=== PATIENT | female | born 1950 | race Caucasian/White ===

== ENCOUNTER 2017-01-28 10:22 | Inpatient (IN) | payer MEDICARE ==
[2017-01-28] MEDS ORDERED: Sodium Chloride 0.9% 1,000 ML IV STA (10:57)
--- NOTE | 2017-01-28 11:20 | ED PDOC ---
Arrival/HPI - General Chief Complaint: Abdominal Pain Time Seen by Provider: 01/28/17 10:49 Historian: Patient - History of Present Illness Narrative History of Present Illness (Text): 01/28/17 11:12 67yo female with PMhx of hypertension, DM, present with complaint of mild abdominal pain associated with multiple episodes of nonbillious/bloody vomiting and diarrhea since 0400am this morning. States she ate in a restaurant last night. She reports that pain radiates to her chest. Denies fever, chills, SOB, diaphoresis, dizziness, sick contact, melena, hematemesis. Past Medical History - Provider Review Nursing Documentation Reviewed: Yes - Infectious Disease Hx of Infectious Diseases: None - Reproductive Menopause: Yes - Cardiac Hx Hypertension: Yes - Endocrine/Metabolic Hx Diabetes Mellitus Type 2: Yes - Genitourinary/Gynecological Other/Comment: left breast CA 1995, had radiation - Psychiatric Hx Substance Use: No - Surgical History Other/Comment: tumor removed from the left breast - Anesthesia Hx Anesthesia: Yes Hx Anesthesia Reactions: No Hx Malignant Hyperthermia: No Family/Social History - Physician Review Nursing Documentation Reviewed: Yes Family/Social History: Unknown Family HX Smoking Status: Never Smoked Hx Alcohol Use: No Hx Substance Use: No Allergies/Home Meds Allergies/Adverse Reactions: Allergies No Known Allergies Allergy (Verified 01/28/17 16:53) Home Medications: Home Meds Medication Instructions Recorded Confirmed Aspirin [Adult Low Dose Aspirin EC] 1 tab PO DAILY 01/28/17 01/28/17 Azilsartan Medoxomil [Edarbi] 40 mg PO QOTHERDAY 01/28/17 01/28/17 Metoprolol Succinate [Metoprolol 1 tab PO DAILY 01/28/17 01/28/17 Succinate] Pioglitazone [Actos] 15 mg PO DAILY 01/28/17 01/28/17 Potassium Chloride [K-Dur 20] 20 meq PO BID 01/28/17 01/28/17 Rosuvastatin Calcium [Crestor] 20 mg PO DAILY 01/28/17 01/28/17 cloNIDine [clonidine HCl] 0.2 mg PO TID 01/28/17 01/28/17 Review of Systems - Physician Review All systems were reviewed & negative as marked: Yes - Review of Systems Constitutional: Normal Eyes: Normal ENT: Normal Respiratory: Normal Cardiovascular: Normal Gastrointestinal: Abdominal Pain, Diarrhea, Nausea, Vomiting. absent: Hematochezia, Hematemesis Genitourinary Female: Normal Musculoskeletal: Normal Skin: Normal Neurological: Normal Endocrine: Normal Hemo/Lymphatic: Normal Psychiatric: Normal Physical Exam Vital Signs Reviewed: Yes Vital Signs Temp Pulse Resp BP Pulse Ox 01/28/17 15:00 98.3 F 78 18 160/88 H 98 01/28/17 13:00 78 18 169/86 H 98 01/28/17 10:35 98 F 68 19 190/100 H 98 Temperature: Afebrile Blood Pressure: Normal Pulse: Regular Respiratory Rate: Normal Appearance: Positive for: Well-Appearing, Non-Toxic, Comfortable Pain Distress: None Mental Status: Positive for: Alert and Oriented X 3 - Systems Exam Head: Present: Atraumatic, Normocephalic Pupils: Present: PERRL Extroacular Muscles: Present: EOMI Conjunctiva: Present: Normal Mouth: Present: Moist Mucous Membranes Neck: Present: Normal Range of Motion Respiratory/Chest: Present: Clear to Auscultation, Good Air Exchange. No: Respiratory Distress, Accessory Muscle Use Cardiovascular: Present: Regular Rate and Rhythm, Normal S1, S2. No: Murmurs Abdomen: Present: Normal Bowel Sounds, Other (Soft). No: Tenderness, Distention , Peritoneal Signs, Rebound, Guarding, McBurney's Point Tender, Rovsing's Sign Present Back: Present: Normal Inspection Upper Extremity: Present: Normal Inspection. No: Cyanosis, Edema Lower Extremity: Present: Normal Inspection. No: Edema Neurological: Present: GCS=15, CN II-XII Intact, Speech Normal Skin: Present: Warm, Dry, Normal Color. No: Rashes Psychiatric: Present: Alert, Oriented x 3, Normal Insight, Normal Concentration Medical Decision Making ED Course and Treatment: 01/28/17 12:49 PT with multiple co morbidities who present with abdominal pain, V/D. Her pain improved in ED. She had pancreatitis on the lab. First CE was negative. Pt was hydrated in ED. She will be admitted for Pancreatitis and chest pain. Case was DW Dr. Rinaldi. She aceepted pt to her seriveice. requested Abdominal CT and Dr. Seaman consult. - Lab Interpretations Lab Results: 01/28/17 11:15 01/28/17 11:15 Lab Results 01/28/17 12:20: Urine Color Straw, Urine Appearance Slight-cloudy, Urine pH 6.5 , Ur Specific Wesley 1.020, Urine Protein Trace H, Urine Glucose (UA) Negative , Urine Ketones Negative, Urine Blood Trace-lysed H, Urine Nitrate Negative, Urine Bilirubin Negative, Urine Urobilinogen 0.2, Ur Leukocyte Esterase Small H , Urine RBC 0 - 2, Urine WBC 5 - 10, Ur Epithelial Cells 0 - 2, Urine Bacteria Small 01/28/17 11:15: WBC 7.4, RBC 4.46, Hgb 12.8, Hct 38.0, MCV 85.2, MCH 28.7, MCHC 33.7, RDW 13.3, Plt Count 223, MPV 10.2, Gran % 85.9 H, Lymph % (Auto) 9.9 L, Burnet % (Auto) 3.8, Eos % (Auto) 0.3 L, Baso % (Auto) 0.1, Gran # 6.35, Lymph # 0.7 L, Burnet # 0.3, Eos # 0.0, Baso # 0.01, PT 10.5, INR 0.97, APTT 27.4, Sodium 142, Potassium 3.6, Chloride 102, Carbon Dioxide 26, Anion Gap 18, BUN 13, Creatinine 0.8, Est GFR ( Amer) > 60, Est GFR (Non-Af Amer) > 60, Random Glucose 128 H, Calcium 9.8, Total Bilirubin 1.2, AST 37, ALT 27, Alkaline Phosphatase 60, Lactate Dehydrogenase 804 H, Total Creatine Kinase 143, Troponin I < 0.01, Total Protein 9.0 H, Albumin 4.8, Globulin 4.2, Albumin/ Globulin Ratio 1.1, Amylase 250 H, Lipase 529 H 01/28/17 11:14: POC Glucose (mg/dL) 130 H - RAD Interpretation Radiology Orders: 01/28/17 12:41 ABD & PELVIS PO CONTRAST ONLY [CT] Stat - EKG Interpretation Interpreted by ED Physician: Yes (NSR @60bpm No ST changes) - Medication Orders Current Medication Orders: Acetaminophen (Tylenol 325mg Tab) 650 mg PO Q6H PRN PRN Reason: Temperature Aspirin (Aspirin Chewable) 81 mg PO DAILY [facility] Atorvastatin Calcium (Lipitor) 20 mg PO DIN [facility] Clonidine HCl (Catapres) 0.2 mg PO TID [facility] Home Med (Home Med) 1 unit PO QOTHERDAY [facility] Ceftriaxone Sodium (Rocephin 1 Gram Ivpb) 100 mls @ 100 mls/hr IVPB DAILY [facility] PRN Reason: Protocol Metronidazole (Flagyl) 100 mls @ 100 mls/hr IVPB Q8 [facility] PRN Reason: Protocol Dextrose/Sodium Chloride (Dextrose 5%/0.45% Ns 1000 Ml) 1,000 mls @ 100 mls/hr IV .Q10H [facility] Insulin Human Regular (Humulin R Low) 0 units SC ACHS [facility] PRN Reason: Protocol Latanoprost (Xalatan Opht) 0 ml OU HS [facility] Metoprolol Tartrate (Lopressor) 50 mg PO BRKDIN [facility] Ondansetron HCl (Zofran Inj) 4 mg IVP Q8H PRN PRN Reason: Nausea/Vomiting Pantoprazole Sodium (Protonix Inj) 40 mg IVP DAILY [facility] Discontinued Medications Famotidine (Pepcid) 20 mg IVP STAT STA Stop: 01/28/17 10:58 Last Admin: 01/28/17 11:26 Dose: 20 MG IVP Administration Document 01/28/17 11:26 [facility] (Rec: 01/28/17 11:[id number]) Charges for Administration # of IVP Administrations 1 Furosemide (Lasix) 20 mg IVP STAT STA Stop: 01/28/17 16:59 Sodium Chloride (Sodium Chloride 0.9%) 1,000 mls @ 100 mls/hr IV .Q10H STA Stop: 01/28/17 20:56 Last Admin: 01/28/17 11:27 Dose: 100 MLS/HR eMAR Start Stop Document 01/28/17 11:27 [facility] (Rec: 01/28/17 11:29 [place] [id number]) Intravenous Solution Start Date 01/28/17 Start Time 11:15 Iohexol (Omnipaque 240 (50 Ml)) Confirm Administered Dose 50 ml .ROUTE .STK-MED ONE Stop: 01/28/17 12:48 Last Admin: 01/28/17 15:55 Dose: 50 ML Ondansetron HCl (Zofran Inj) 4 mg IVP STAT STA Stop: 01/28/17 10:58 Last Admin: 01/28/17 11:26 Dose: 4 MG IVP Administration Document 01/28/17 11:26 [facility] (Rec: 01/28/17 11:26 EWO [id number]) Charges for Administration # of IVP Administrations 1 Ondansetron HCl (Zofran Inj) 4 mg IVP STAT STA Stop: 01/28/17 15:30 Last Admin: 01/28/17 15:55 Dose: 4 MG IVP Administration Document 01/28/17 15:55 [facility] (Rec: 01/28/17 15:55 EWO [id number]) Charges for Administration # of IVP Administrations 2 Ondansetron HCl (Zofran Inj) Confirm Administered Dose 4 mg .ROUTE .STK-MED ONE Stop: 01/28/17 15:48 Last Admin: 01/28/17 15:55 Dose: Potassium Chloride (K-Dur 20 Meq Er Tab) 20 meq PO ONCE ONE Stop: 01/28/17 16:59 Disposition/Present on Arrival - Present on Arrival Any Indicators Present on Arrival: No History of DVT/PE: No History of Uncontrolled Diabetes: No Urinary Catheter: No History of Decub. Ulcer: No History Surgical Site Infection Following: None - Disposition Have Diagnosis and Disposition been Completed?: Yes Diagnosis: Pancreatitis, Chest pain Disposition: HOSPITALIZED Disposition Time: 12:40 Patient Problems: Current Active Problems Problem Status Diagnosed Chest pain Acute Pancreatitis Acute Condition: FAIR
[2017-01-28 11:22] LABS: ADD MANUAL DIFF? NO
[2017-01-28 11:30] LABS: BASO # 0.01 K/mm3 (0.0-2.0); BASO % 0.1 % (0.0-3.0); EOS % 0.3 % (1.5-5.0); GRAN # 6.35 (1.4-6.5); GRAN % 85.9 % (50.0-68.0); LYMPH # 0.7 (1.2-3.4); LYMPH % 9.9 % (22.0-35.0); MEAN CELL VOLUME 85.2 fL (80.0-105.0); MEAN CORPUSCULAR HEMOGLOBIN 28.7 pg (25.0-35.0); MEAN CORPUSCULAR HGB CONC 33.7 g/dl (31.0-37.0); MEAN PLATELET VOLUME 10.2 fl (7.0-11.0); MONO # 0.3 (0.1-0.6); MONO % 3.8 % (1.0-6.0); PLATELET COUNT 223 10^3/uL (120.0-450.0); RED CELL DISTRIBUTION WIDTH 13.3 % (11.5-14.5); WHITE BLOOD COUNT 7.4 10^3/ul (4.5-11.0)
[2017-01-28 11:41] LABS: INR 0.97 (0.93-1.08); PARTIAL THROMBOPLASTIN TIME 27.4 Seconds (23.7-30.8)
[2017-01-28 11:44] LABS: ALB/GLOB RATIO 1.1 (1.1-1.8); ALKALINE PHOSPHATASE 60 U/L (38-133); ALT/SGPT 27 U/L (7-56); AMYLASE 250 U/L (35-125); AST/SGOT 37 U/L (15-39); BILIRUBIN,TOTAL 1.2 mg/dL (0.2-1.3); BLOOD UREA NITROGEN 13 mg/dL (7-21); CALCIUM 9.8 mg/dL (8.4-10.5); CARBON DIOXIDE 26 mmol/L (21-33); CHLORIDE 102 mmol/L (98-107); GFR AFRICAN-AMERICAN > 60; GLUCOSE,RANDOM 128 mg/dL (70-110); LIPASE 529 U/L (23-300); POTASSIUM 3.6 mmol/L (3.6-5.0); SODIUM 142 mmol/L (132-148)
[2017-01-28 11:59] LABS: TROPONIN I < 0.01 ng/mL
[2017-01-28 12:33] LABS: PH,URINE 6.5 (4.7-8.0); URINE BILIRUBIN NEGATIVE (NEGATIVE); URINE BLOOD TRACE-LYSED (NEGATIVE); URINE GLUCOSE (UA) NEGATIVE (NEGATIVE); URINE KETONE NEGATIVE (NEGATIVE); URINE LEUKOCYTE ESTERASE SMALL Leu/uL (NEGATIVE); URINE PROTEIN TRACE mg/dL (<30 mg/dL); URINE UROBILINOGEN 0.2 E.U./dL (<1 E.U./dL)
[2017-01-28 12:35] LABS: URINE APPEARANCE SLIGHT-CLOUDY (CLEAR); URINE COLOR STRAW (YELLOW)
[2017-01-28 12:43] LABS: URINE RBC 0 - 2 /hpf (0-2)
[2017-01-28 12:44] LABS: URINE BACTERIA SMALL (NEG); URINE EPITHELIAL CELLS 0 - 2 /hpf (0-5)
[2017-01-28] MEDS ORDERED: Iohexol 240 (50 ml) ONE (12:47)
--- NOTE | 2017-01-28 14:13 | RAD ---
HISTORY: admission/CP COMPARISON: No prior. FINDINGS: LUNGS: There is mild pulmonary venous congestion. There is no focal consolidation. PLEURA: No significant pleural effusion identified, no pneumothorax apparent. CARDIOVASCULAR: The heart is enlarged. OSSEOUS STRUCTURES: No significant abnormalities. VISUALIZED UPPER ABDOMEN: Normal. OTHER FINDINGS: None. IMPRESSION: Cardiomegaly and mild pulmonary venous congestion.
--- NOTE | 2017-01-28 14:29 | CARD ---
APPROVED REPORT EKG Measurement Heart [id number] <Conclusion> Normal sinus rhythm Anterior infarct, age undetermined Abnormal ECG
--- NOTE | 2017-01-28 15:07 | CT ---
PROCEDURE: CT Abdomen and Pelvis with contrast HISTORY: Abdominal pain COMPARISON: None. TECHNIQUE: CT scan of abdomen and pelvis was performed without administration of intravenous contrast. Oral contrast was administered. Coronal and sagittal reformatted images were obtained. Radiation dose: Total exam DLP = 795.65 MGy-cm. FINDINGS: LOWER THORAX: The lung bases are clear. LIVER: The liver is normal in size. There is a 5 mm low-attenuation lesion in the left hepatic lobe too small to characterize by CT criteria but statistically most compatible with a simple cyst. GALLBLADDER AND BILE DUCTS: There are no calcified gallstones. There is no evidence of intra or extrahepatic biliary ductal dilatation. PANCREAS: The pancreas is normal in size without calcifications or ductal dilatation. SPLEEN: The spleen is normal in size. ADRENALS: Both adrenal glands are normal in size without discrete nodule. KIDNEYS AND URETERS: Both kidneys are normal in size without hydronephrosis or nephrolithiasis. VASCULATURE: No evidence of aortic aneurysm. Atherosclerotic aortoiliac calcifications are present. BOWEL: The stomach is markedly distended and filled with oral contrast. There is apparent mild mural thickening in the duodenal cap. The small bowel loops are normal in caliber. The colon is essentially decompressed. APPENDIX: Normal appendix. PERITONEUM: No free fluid. No free air. LYMPH NODES: No enlarged lymph nodes. BLADDER: Unremarkable. REPRODUCTIVE: The uterus is normal in size. There are no adnexal masses. BONES: No acute fracture. Mild multilevel degenerative disc disease. OTHER FINDINGS: None. IMPRESSION: 1. The stomach is distended and there is apparent mild mural thickening in the duodenal cap which is nonspecific and could be related to underdistention, peristalsis or nonspecific duodenitis. 2. No acute abdominal or pelvic abnormality.
[2017-01-28] MEDS ORDERED: Metoprolol Succinate 100 mg XL Tab PO SCH (16:45)
[2017-01-28] MEDS ORDERED: Potassium Chloride 20 mEq ER Tab PO ONE (16:58)
[2017-01-28] MEDS: Insulin Reg-LOW-Coverage SC SCH ×2 (17:48→22:46)
[2017-01-28] MEDS: Dextrose 5%/0.45% NS 1,000 ML IV SCH (17:57)
[2017-01-28] MEDS: cefTRIAXone 1 gm 100 ML IVPB SCH (17:58)
[2017-01-28 18:33] LABS: TROPONIN I < 0.01 ng/mL
--- NOTE | 2017-01-28 18:39 | HP ---
HISTORY OF PRESENT ILLNESS: This 67-year-old female is admitted to [facility] with pancreatitis, vomiting and multiple comorbidities including chronic hypertension, type 2 diabetes mellitus, obesity, hyperlipidemia and peptic ulcer disease with probable gastroparesis. The patient came to the [facility] ER earlier today complaining of multiple episodes of vomiting and diarrhea, which started at approximately 4 a.m. this morning, she denied any obvious bile or blood in the vomitus or diarrhea and states that the discomfort went from her abdomen to her stomach region and that she has a history of gastritis, GERD, and what sounds like gastroparesis in her past. The patient also, on review of her medical history, has hypertension, hyperlipidemia, obesity and type 2 diabetes mellitus. In the Emergency Room, she was noted to be mildly dehydrated, was given IV fluids and was noted to have an elevated amylase and lipase, raising suspicion for pancreatitis. On further questioning the patient, she denies any alcohol misuse or abuse and states she has no knowledge of gallstones or cholecystitis in her past. REVIEW OF SYSTEMS: CONSTITUTIONAL: She denied fever, chills. HEAD: Denied any head trauma and states she had a mini stroke in the distant past. EYES: She states she has glaucoma and will be taking her eyedrops from home as labeled. EARS: Denied hearing loss. THROAT: Denied swallowing difficulty. NECK: Denied stiffness. CARDIAC: Denied any anginal chest pain. PULMONARY: Denied cough or hemoptysis. GASTROINTESTINAL: Has chronic peptic ulcer disease and history of GERD. She denied hematemesis or melena. GENITOURINARY: Denied dysuria. SKIN: Denied rash. VASCULAR: Denied claudication. PSYCHOLOGICAL: Denied depression. ENDOCRINE: Has hyperlipidemia and diabetes mellitus. PSYCHIATRIC: Denied depression. FAMILY HISTORY: Positive for stroke and pancreatic cancer. SOCIAL HISTORY: She is a retired healthcare switchboard operator assistant. She is a nondrinker, former smoker, non IV drug misuser. ALLERGIES: Denies any allergies to medication. PAST SURGICAL HISTORY: Significant for bunion removal, breast cancer surgery and no major abdominal surgeries in her past. PHYSICAL EXAMINATION: VITAL SIGNS: Temperature 98, respirations 19, pulse 78, blood pressure 169/86 with a pulse ox of 98% on room air. HEENT: Normocephalic, atraumatic. Eyes show no icterus. Ears clear. Throat not injected. NECK: Supple. HEART: Regular S1, S2. No pathological rubs, murmurs, or gallops. LUNGS: Clear. ABDOMEN: Obese, nontender, without palpable organomegaly, without rebound, without guarding. SKIN: Without rash. VASCULAR: Legs warm to touch. EXTREMITIES: No clubbing, no cyanosis, no edema. PSYCHOLOGICAL: Alert and oriented. NEUROLOGICAL: Grossly intact. LABORATORY DATA: White count 7400, hemoglobin 12.8, hematocrit 38.0, platelets 223,000. PT/INR 0.97, PTT 27.4. Sodium 142, K 3.6, chloride 102, bicarbonate 26, BUN 13, creatinine 0.8, random blood sugar 130. Calcium is normal at 9.8, bilirubin 1.2, normal AST 37, ALT 27, alkaline phosphatase 60 all normal. Troponin was less than 0.01. CPK was normal at 143, amylase elevated at 250, lipase was elevated at 529. EKG showed normal sinus rhythm with nonspecific ST- T wave changes. Chest x-ray showed mild pulmonary venous vascular congestion, no focal consolidation, no pneumothorax. Abdominal pelvic CT showed stomach distended with thickening of her duodenal cap which is nonspecific and could be related to under distention, peristalsis, or duodenitis. No acute abdominal or pelvic abnormalities were noted. There were no gallstones, no intra or extrahepatic biliary duct dilatation and pancreas was normal in size with no calcifications or ductal dilatation. IMPRESSION: A 65-year-old obese female with pancreatitis and comorbidities of chronic hypertension, type 2 diabetes mellitus, obesity, hyperlipidemia, degenerative arthritis, peptic ulcer disease with gastroesophageal reflux disease, glaucoma. PLAN: To obtain a repeat comprehensive metabolic panel in the a.m. Amylase and lipase in the a.m., cardiac isoenzymes q. 8 x 2. Blood and urine cultures have been sent. She will be started empirically on Rocephin 1 gram IV q. 24, Flagyl 500 mg IV q. 8, Ecotrin 81 mg p.o. daily, clonidine 0.2 mg p.o. t.i.d., D5 0.45 saline at 100 mL per hour and she remains n.p.o. until cleared by gastroenterology for clear liquid diet. She will continue on regular low dose insulin coverage a.c. meals and at bedtime. She will be given Lasix 20 mg IV 1 dose with 20 mEq potassium chloride x 1 dose for her chest x-ray findings. She will be given Lipitor 20 mg p.o. at dinner, metoprolol tartrate 50 mg p.o. b.i.d., Protonix 40 mg IV daily, eyedrops from home as labeled. She remains n.p.o. Consultation with Dr. Seaamn from has been ordered. Based on the above results in her clinical course on the cardiac unit additional testings and interventions will be entertained. All of this was explained in detail to the patient and her nurse, Debo Sarkar, Meaghan Rinaldi MD cc: [id number] TT: 01/28/2017 18:38:34 jn MTDD
[2017-01-28 20:14] VITALS: BMI 30.5
[2017-01-28] MEDS ORDERED: Pneumococcal 23-Valent Vaccine IM ONE (20:14)
[2017-01-28] MEDS ORDERED: Influenza Vaccine 45 MCG/0.5 ml IM ONE (20:14)
[2017-01-28] MEDS: metroNIDAZOLE IV 500 mg/100 ml 100 ML IVPB SCH (21:32)
[2017-01-28] MEDS: Latanoprost 2.5 ml Opht Soln OU SCH (21:33)
[2017-01-29 01:34] LABS: TROPONIN I < 0.01 ng/mL
--- NOTE | 2017-01-29 06:03 | PN ---
DATE: 01/28/2017 SUBJECTIVE: The patient was seen and evaluated earlier, discussed with Dr. Rinaldi. This 67-year-old patient has a past medical history of hypertension, diabetes mellitus, was admitted for the complaint s of abdominal pain, nausea, and vomiting. HISTORY OF PRESENT ILLNESS: The patient was doing well, went to [facility] ____ . No similar episod es in the past. The patient is being followed by Dr. Rodriguez, divinity professor. The patient had an endoscopy done 2 years ago and she had a colonoscopy done recently for history of polyps. No fever. PAST MEDICAL HISTORY: As above, significant also for left breast CA in 1995 status post radiation. SOCIAL HISTORY: Denies smoking or alcohol. REVIEW OF SYSTEMS: Positive as above. ALLERGIES: No known drug allergy. FAMILY HISTORY: Otherwise noncontributory. PHYSICAL EXAMINATION: GENERAL: The patient is lying on the bed, not in acute distress. VITAL SIGNS: Temperature is 98.3, blood pressure is 108/93. HEENT: Atraumatic, anicteric. NECK: Supple. HEART: S1, S2 heard. LUNGS: Bilateral air entry present. ABDOMEN: Soft. There is no tenderness. EXTREMITIES: No edema, no cyanosis. LABORATORY DATA: Hemoglobin is 12.8, hematocrit 38, platelets 223, WBC is 7.4. BUN 13, creatinine 0 .8. Transaminase is normal. LDH is mildly elevated. The concern is the elevated amylase and lipase values, amylase is 250 and lipase is 529. The CT of the abdomen and pelvis was reviewed. The patient has a history of ulcer disease. IMPRESSION: This is a 67-year-old patient with a history of diabetes mellitus admitted with abdomina l pain, vomiting. The differential diagnoses should include gastroparesis, peptic ulcer disease, ero sive esophagus, and also neoplasia to be considered. The patient has been n.p.o. vomiting. PLAN: Would recommend continue the PPI, IV fluids, initiate ____ measures. 1. Continue the PPI. 2. IV fluids and follow up electrolytes. 3. The patient would benefit from the elective endoscopic examination and would defer until she is m ore optimized. Will slowly advance the diet when the symptoms have improved. The patient is still t hrowing up. If the patient remains symptomatic, we will consider repeat EGD this admission. Eulogio Seaman MD cc: [id number] TT: 01/29/2017 06:03:15 Confirmation # [id number] Dictation # [id number] jn
[2017-01-29] MEDS: metroNIDAZOLE IV 500 mg/100 ml 100 ML IVPB SCH ×3 (06:42→21:31)
[2017-01-29] MEDS: Dextrose 5%/0.45% NS 1,000 ML IV SCH ×2 (06:42→12:56)
[2017-01-29 07:25] LABS: ALB/GLOB RATIO 1.1 (1.1-1.8); ALKALINE PHOSPHATASE 54 U/L (38-133); ALT/SGPT 18 U/L (7-56); AMYLASE 123 U/L (35-125); AST/SGOT 32 U/L (15-39); BILIRUBIN,TOTAL 1.3 mg/dL (0.2-1.3); BLOOD UREA NITROGEN 11 mg/dL (7-21); CALCIUM 9.2 mg/dL (8.4-10.5); CARBON DIOXIDE 28 mmol/L (21-33); CHLORIDE 96 mmol/L (98-107); GFR AFRICAN-AMERICAN > 60; GLUCOSE,RANDOM 137 mg/dL (70-110); LIPASE 91 U/L (23-300); SODIUM 137 mmol/L (132-148); TOTAL PROTEIN 8.6 g/dL (5.8-8.3)
[2017-01-29] MEDS: Insulin Reg-LOW-Coverage SC SCH ×4 (08:23→21:39)
[2017-01-29 09:10] LABS: POTASSIUM 2.8 mmol/L (3.6-5.0)
[2017-01-29] MEDS: Potassium Chloride 10 mEq 100 ML IVPB SCH ×3 (10:26→14:30)
[2017-01-29] MEDS: cefTRIAXone 1 gm 100 ML IVPB SCH (10:27)
[2017-01-29] MEDS: Potassium Chloride 20 mEq ER Tab PO SCH (10:54)
[2017-01-29] MEDS ORDERED: Nitroglycerin 2% Ointment Foilpak UD TOP SCH (11:45)
--- NOTE | 2017-01-29 11:51 | US ---
HISTORY: nausea/vomiting COMPARISON: None. TECHNIQUE: Grayscale imaging was performed. FINDINGS: LIVER: Measures 14.0 cm. Normal echogenicity of the liver parenchyma. No mass. No intrahepatic bile duct dilatation. GALLBLADDER: Unremarkable. No gallstones. COMMON BILE DUCT: Measures 6.0 mm. No stones. No dilatation. PANCREAS: Unremarkable as visualized. No mass. No ductal dilatation. RIGHT KIDNEY: Measures 10.6cm. Normal echogenicity. No calculus, mass, or hydronephrosis. LEFT KIDNEY: Measures 9.6cm. Normal echogenicity. No calculus, mass, or hydronephrosis. SPLEEN: Normal in size and contour. No mass. AORTA: Not visualized due to bowel gas. IVC: Not visualized due to bowel gas. OTHER FINDINGS: None. IMPRESSION: IVC and aorta are obscured by bowel gas. No sonographic abnormality.
--- NOTE | 2017-01-29 11:59 | PN ---
DATE: 01/29/2017 This 67-year-old female was examined at her bedside. Her case was reviewed with her nurse, Debo Sarkar. The patient, since admission, had an episode of further vomiting, has been seen by Dr. Seaman from GI and remains n.p.o. on IV fluids and IV antibiotics in the setting of gastroenteritis, concerns of gallstone pancreatitis, and now appears to have a urinary tract infection - the identification and se nsitivity of which is pending, but urine culture is showing a gram-negative luisana. PHYSICAL EXAMINATION: VITAL SIGNS: The patient is in normal sinus rhythm on the monitoring coordinator. Her temperature is 98.4, her respirations are 20. Pulse is 70, and blood pressure is 166/74, pulse ox 97% room air. HEAD: Normocephalic, atraumatic. EYES: No icterus. EARS: Clear. THROAT: Noninjected. NECK: Supple. HEART: Regular S1, S2. LUNGS: Clear. ABDOMEN: Obese, nontender, without palpable organomegaly. No rebound, no guarding. EXTREMITIES: No clubbing, no cyanosis, no edema. SKIN: Without rash. NEUROLOGIC: Intact. PSYCHOLOGICAL: Alert. VASCULAR: Legs warm to touch. LABORATORY DATA: White count 7400, hemoglobin 12.8, hematocrit 38.0, platelets 223. PT/INR is 0.97, PTT 27.4. Sodium 137, K 2.8, chloride 96, bicarb 28. BUN 11, creatinine 0.9. Random blood sugar 1 37. Bilirubin is 1.3, normal. AST normal 32. ALT normal 18. Alk phos normal 54. Three sets of ca rdiac isoenzymes were negative with troponin less than 0.01 x 3, and all CPKs normal - 143, 133, 129. This morning's amylase is 123, and lipase was 91. Urine culture is growing a gram-negative luisana. IMPRESSION: A 67-year-old female admitted with acute gastroenteritis, rule out pancreatitis, rule ou t gastroparesis and duodenitis with comorbidities of obesity, chronic hypertension, type 2 diabetes m ellitus, peptic ulcer disease with gastroesophageal reflux disease, rule out gastroparesis, glaucoma, degenerative arthritis. PLAN: At present is to replace her low potassium with oral and IV potassium as outlined. She will c ontinue on her antihypertensives, which include clonidine 0.2 mg p.o. t.i.d. She will continue on Fl agyl 500 mg IV q. 8, Rocephin 1 gram IV q. 24, regular low-dose insulin coverage a.c. meals and at be dtime, Lipitor 20 mg p.o. at dinnertime. Metoprolol tartrate has been increased to 100 mg p.o. b.i.d . Protonix 40 mg IV daily, glaucoma eyedrops from home as labeled. She is ordered to have an abdominal ultrasound, which will be reviewed by Dr. Eulogio Seaman from . She remains n.p.o. She has an order for physical therapy for ambulation safety, and ultimate decis ion on further workup of her GI complaint will be decided by . All of this was discussed in detail with the patient at her bedside. Additional labs will be ordered for the a.m. including basic metab olic panel. IV fluids will be adjusted, and we will await the results of her blood and urine culture s. Meaghan Rinaldi MD cc: [id number] TT: 01/29/2017 11:58:38 Confirmation # [id number] Dictation # [id number] nazia
--- NOTE | 2017-01-29 20:32 | PN ---
DATE: 01/29/2017 SUBJECTIVE: This patient was seen and evaluated earlier. The patient is comfortable. No further ep isodes of vomiting, no abdominal pain, is hungry and wants to eat. PHYSICAL EXAMINATION: VITAL SIGNS: Temperature is 97.9, pulse of 54, blood pressure 123/79. HEENT: Atraumatic, anicteric. NECK: Supple. HEART: S1, S2 heard. LUNGS: Bilateral air entry present. ABDOMEN: Soft, there is no tenderness now. EXTREMITIES: No edema, no cyanosis. NEUROLOGIC: Alert, oriented. Moves all the extremities. LABORATORY DATA: Chemistry showed potassium is 2.8, it is being supplemented. Amylase and lipase ar e entirely normal. The patient did have an ultrasound scan of the abdomen that showed no gallstones, CBD normal. IMPRESSION: This is a 67-year-old patient admitted with acute onset of abdominal pain, nausea and vo miting. The patient has a history of gastroparesis in the past and peptic ulcer disease in the past. The patient had a last endoscopy done by Dr. Barraagn about 2 years ago. Had acute symptoms and pres ented after she ate chicken wings in the [employer]. The patient did have mildly elevated amylase and lipase, which have normalized now. The likely cause in this situation to be considered is gastroent eritis, possible gastroparesis to be considered. The patient is now feeling much better, improved. We will start the patient on a clear liquid diet . If the patient is tolerating the diet tomorr ow, will advance the diet to a soft diet and then the patient may be followed up with her gastroenter ologist. The patient was advised to get copies of the report for for outpatient GI followup. Thank you very much for allowing us to participate in the care of the patient. Eulogio Seaman MD cc: [id number] TT: 01/29/2017 20:32:01 Confirmation # [id number] Dictation # [id number] dn
[2017-01-29] MEDS: Latanoprost 2.5 ml Opht Soln OU SCH (21:33)
[2017-01-30] MEDS ORDERED: Bismuth Subsalicylate 262 mg/15 ml Sus (240 ml) PO ONE ×2 (03:22→22:25)
[2017-01-30] MEDS: Dextrose 5%/0.45% NS 1,000 ML IV SCH (04:19)
[2017-01-30] MEDS: metroNIDAZOLE IV 500 mg/100 ml 100 ML IVPB SCH ×3 (05:59→22:20)
[2017-01-30 07:28] LABS: ALB/GLOB RATIO 1.1 (1.1-1.8); ALKALINE PHOSPHATASE 52 U/L (38-133); ALT/SGPT 19 U/L (7-56); AST/SGOT 35 U/L (15-39); BILIRUBIN,TOTAL 0.9 mg/dL (0.2-1.3); BLOOD UREA NITROGEN 16 mg/dL (7-21); CALCIUM 9.1 mg/dL (8.4-10.5); CARBON DIOXIDE 27 mmol/L (21-33); CHLORIDE 101 mmol/L (98-107); GFR AFRICAN-AMERICAN > 60; GLUCOSE,RANDOM 118 mg/dL (70-110); POTASSIUM 3.2 mmol/L (3.6-5.0); SODIUM 139 mmol/L (132-148); TOTAL PROTEIN 7.8 g/dL (5.8-8.3)
[2017-01-30] MEDS: Potassium Chloride 20 mEq ER Tab PO SCH ×4 (08:52→17:18)
[2017-01-30] MEDS: Insulin Reg-LOW-Coverage SC SCH ×4 (09:29→22:14)
[2017-01-30] MEDS ORDERED: EDARBI 40 MG PO SCH (10:00)
[2017-01-30] MEDS: Potassium Chloride 20 mEq 100 ML IVPB SCH ×2 (10:24→14:53)
[2017-01-30] MEDS: cefTRIAXone 1 gm 100 ML IVPB SCH (10:25)
--- NOTE | 2017-01-30 11:24 | PN ---
DATE: 01/30/2017 The patient denies any further symptoms of nausea, vomiting, no abdominal pain. She did report havin g some diarrhea yesterday and took some Pepto-Bismol with relief. She did have a bowel movement this morning that was watery x 2, but no reports of overt GI bleed. She is tolerating the liquid diet. VITAL SIGNS: Temperature is 97.6, blood pressure is 140/76, pulse is 60, respirations 20, 98% on tommie m air. LABORATORIES: Today, sodium 139, her K is 3.2. She is receiving potassium replacement, see orders. BUN 16, creatinine is 1.0. LFTs are within normal limits. We will check magnesium level, although her potassium is improved compared to yesterday, which was at 2.8. The patient had an abdominal ultrasound, which shows unremarkable gallbladder, no gallstones. The co mmon bile duct measured 6.0 mm, no stones or dilatation. Liver measures 14 cm, normal echogenicity, no mass or intrahepatic dilatation. PHYSICAL EXAMINATION: HEENT: Sclerae anicteric. NECK: Supple. CARDIAC: S1, S2. LUNG SOUNDS: With decreased breath sounds, but good air entry. ABDOMEN: With bowel sounds, soft, nontender. No rebound, guarding, or organomegaly. EXTREMITIES: No edema. NEUROLOGIC: Awake, alert, and oriented. ASSESSMENT: This is a 67-year-old female, came with acute nausea, vomiting, and abdominal pain. She does have history of gastroparesis and peptic ulcers in the past and also acute symptoms occurred af ter eating chicken wings at [employer]. Consider gastroenteritis as well. Did have history of elevat ed amylase and lipase, which have now normalized. The patient is still reporting loose bowel movemen ts. She is on IV antibiotics of Flagyl and Rocephin. She is tolerating the liquid diet. We will co nsider advancing her diet to a soft diet and request for stool for Clostridium difficile and advised followup with her senior network systems engineer, has endoscopy done by Dr. Barragan about 2 years ago. She is als o hypokalemic. She is on potassium replacement. We will just check her magnesium level as well. The patient was seen and case discussed with Dr. Seaman. Mckenzie GALEAS cc: [id number] TT: 01/30/2017 11:23:23 Confirmation # [id number] Dictation # [id number] en
--- NOTE | 2017-01-30 12:26 | PN ---
DATE: 01/30/2017 This 67-year-old female was examined at her bedside. Her case was reviewed with her nurse, Lidya Bass, registered nurse. The patient was admitted with gastroenteritis, nausea, vomiting, diarrhea, hypokalemia, acute pancreatitis and was noted to have bacteriuria and now has a urine culture positive for Klebsiella pneumoniae ESBL. A consultation with Dr. Short from infectious disease has been requested. PHYSICAL EXAMINATION: GENERAL: The patient is in a normal sinus rhythm on her sustainment logistics analyst. She has no chest pain, no shortness of breath. VITAL SIGNS: Temperature 97.6, respirations 20, pulse 70, blood pressure 123/ 68 with a pulse ox of 98% on room air. HEAD: Normocephalic, atraumatic. EYES: No icterus. EARS: Clear. THROAT: Noninjected. NECK: Supple. HEART: Regular S1, S2. LUNGS: Clear. ABDOMEN: Soft. No rebound, no guarding, no organomegaly palpated. EXTREMITIES: No clubbing, no cyanosis, no edema. SKIN: Without rash. NEUROLOGIC: Intact. PSYCHOLOGICAL: Alert. VASCULAR: Legs warm to touch. LABORATORY DATA: White count 7400, hemoglobin 12.8, hematocrit 38.0, platelets 223,000. Sodium 139, K 3.2, chloride 101, bicarb 27, BUN 16, creatinine 1.0, random blood sugar was 120. All liver function testing was normal including bilirubin 0.9, AST 35, ALT 19, alk phos 52. Repeat amylase and lipase normal. Amylase 123, normal. Lipase 91, normal. Urine culture: Klebsiella pneumoniae ESBL. Blood culture no growth. IMPRESSION: A 67-year-old female admitted with gastroenteritis, pancreatitis, nausea, vomiting, diarrhea, hypokalemia, chronic hypertension, type 2 diabetes mellitus, history of peptic ulcer disease, gastroesophageal reflux disease, gastroparesis, glaucoma, now with urinary tract infection, extended spectrum- beta-lactamase Klebsiella pneumoniae. PLAN: Consult Dr. Short from infectious disease. The patient's IV fluids have been discontinued since she is tolerating clear liquid diet and has been advanced to a soft bland by GI. She will continue on Protonix 40 mg IV daily. I have ordered potassium replacement orally since patient currently has no IV. Her antihypertensive has been adjusted to metoprolol tartrate 100 mg p.o. b.i.d. , clonidine 0.2 mg p.o. t.i.d. She is ordered to have a potassium level in the a.m. She will have her magnesium and stool C. diff toxins requested. Ultimate plan will be for clearance from infectious disease and GI and patient has been advised by gastroenterology to have a followup endoscopy by her project engineering director, Dr. Barragan. This was recommended by Dr. Seaman from GI. I have discussed this case in detail with the patient, her nurse and case coordinator and ultimate decisions on duration of continued hospital stay will be made pending her treatment of hypokalemia and clearance by infectious disease for her ESBL urinary tract infection. Meaghan Rinaldi MD cc: [id number] TT: 01/30/2017 12:26:02 Confirmation # [id number] Dictation # [id number] sn MTDD
--- NOTE | 2017-01-30 12:33 | CP.PCM.PN ---
Subjective - Date & Time of Evaluation Date of Evaluation: 01/30/17 Time of Evaluation: 11:55 - Subjective Subjective: Patient has very poor veins,needs iv access. Objective - Vital Signs/Intake and Output Vital Signs (last 24 hours): Temp Pulse Resp BP Pulse Ox 98.2 F 51 L 20 124/77 98 01/30/17 11:58 01/30/17 11:58 01/30/17 11:58 01/30/17 11:58 01/30/17 05:43 Intake and Output: 01/30/17 01/30/17 06:59 18:59 Intake Total 1440 Balance 1440 - Medications Medications: Current Medications Acetaminophen (Tylenol 325mg Tab) 650 mg PO Q6H PRN PRN Reason: Temperature Last Admin: 01/29/17 10:54 Dose: 650 mg Aspirin (Aspirin Chewable) 81 mg PO DAILY [facility] Last Admin: 01/30/17 10:22 Dose: 81 mg Clonidine HCl (Catapres) 0.2 mg PO TID [facility] Last Admin: 01/30/17 10:22 Dose: 0.2 mg Home Med (Home Med) 1 unit PO QOTHERDAY [facility] Last Admin: 01/30/17 10:28 Dose: 1 unit Ceftriaxone Sodium (Rocephin 1 Gram Ivpb) 100 mls @ 100 mls/hr IVPB DAILY [facility] PRN Reason: Protocol Last Admin: 01/30/17 10:25 Dose: 100 mls/hr Metronidazole (Flagyl) 100 mls @ 100 mls/hr IVPB Q8 [facility] PRN Reason: Protocol Last Admin: 01/30/17 05:59 Dose: 100 mls/hr Potassium Chloride (Potassium Chloride 20 Meq/100 Ml) 100 mls @ 50 mls/hr IVPB Q2H [facility] Stop: 01/30/17 13:29 Last Admin: 01/30/17 10:24 Dose: 50 mls/hr Insulin Human Regular (Humulin R Low) 0 units SC ACHS [facility] PRN Reason: Protocol Last Admin: 01/30/17 09:29 Dose: Not Given Latanoprost (Xalatan Opht) 0 ml OU HS [facility] Last Admin: 01/29/17 21:33 Dose: 2.5 ml Metoprolol Tartrate (Lopressor) 100 mg PO BRKDIN [facility] Last Admin: 01/30/17 08:53 Dose: 100 mg Nitroglycerin (Nitro-Bid 2% Oint) 1 ea TOP Q4H PRN PRN Reason: accelerated hypertension Ondansetron HCl (Zofran Inj) 4 mg IVP Q8H PRN PRN Reason: Nausea/Vomiting Pantoprazole Sodium (Protonix Inj) 40 mg IVP DAILY [facility] Last Admin: 01/30/17 10:24 Dose: 40 mg Potassium Chloride (K-Dur 20 Meq Er Tab) 40 meq PO TID [facility] Last Admin: 01/30/17 10:29 Dose: 20 meq - Labs Labs: 01/30/17 06:30 PT 10.5 Seconds (9.9-11.8) 01/28/17 11:15 INR 0.97 (0.93-1.08) 01/28/17 11:15 APTT 27.4 Seconds (23.7-30.8) 01/28/17 11:15 - Constitutional Appears: No Acute Distress Assessment and Plan - Assessment and Plan (Free Text) Assessment: Poor venous access. Plan: Hep lock inserted in the R hand. #24 angiocath used.
[2017-01-30] MEDS: Meropenem 500 MG in Sodium Chloride 0.9% 100 ML IVPB SCH ×2 (16:19→22:19)
[2017-01-30] MEDS: Latanoprost 2.5 ml Opht Soln OU SCH (22:19)
[2017-01-31] MEDS: metroNIDAZOLE IV 500 mg/100 ml 100 ML IVPB SCH (05:14)
[2017-01-31] MEDS: Nitroglycerin 2% Ointment Foilpak UD TOP PRN ×3 (06:23→17:21)
[2017-01-31 06:42] VITALS: O2SAT 100
[2017-01-31] MEDS: Insulin Reg-LOW-Coverage SC SCH ×4 (07:48→21:46)
[2017-01-31] MEDS: Meropenem 500 MG in Sodium Chloride 0.9% 100 ML IVPB SCH ×2 (09:15→21:46)
[2017-01-31] MEDS: Potassium Chloride 20 mEq ER Tab PO SCH (09:26)
[2017-01-31] MEDS ORDERED: EDARBI 40 MG PO SCH (11:06)
--- NOTE | 2017-01-31 11:46 | PN ---
DATE: 01/31/2017 SUBJECTIVE: This 67-year-old female was examined at her bedside. Her case was reviewed with her nurse in detail. She remains in a normal sinus rhythm on the lunchroom monitor and was noted to have ESBL in her urine with urine culture positive for Klebsiella pneumoniae ESBL. She has been seen in consultation by Dr. Short from infectious disease who has ordered meropenem 500 mg IV q. 12 for 7 days. The patient remains in isolation and is awaiting insurance clearance for continued hospital stay for antibiotic therapy. The patient presently is on a soft bland diet. There have been no reports of vomiting, or diarrhea. PHYSICAL EXAMINATION: VITAL SIGNS: Temperature 98.3, respirations 20, pulse 81, blood pressure 169/ 96 with a pulse ox of 100% on room air. HEAD: Normocephalic, atraumatic. EYES: No icterus. EARS: Clear. THROAT: Noninjected. NECK: Supple. HEART: S1, S2. LUNGS: Clear. ABDOMEN: Soft. EXTREMITIES: No edema. SKIN: Without rash. NEUROLOGIC: Intact. PSYCHOLOGICAL: Alert. VASCULAR: Legs warm to touch. LABORATORY DATA: White count 7400, hemoglobin 12.8, hematocrit 38.0, platelets 223,000. PT/INR is 0.97, PTT 27.4. Potassium 3.6, random blood sugar 111, magnesium 1.8. All liver function testing is normal including bilirubin 0.9, AST 35, ALT 19, and alkaline phosphatase 52. IMPRESSION: A 67-year-old female admitted to [facility] with pancreatitis resolved, gastroenteritis improved, and now with a urinary tract infection with Klebsiella pneumoniae ESBL for which she is receiving IV meropenem 500 mg IV q. 12 for 7 days and isolation precautions. Also with comorbidities of chronic hypertension now with periods of acceleration, type 2 diabetes mellitus, peptic ulcer disease with gastroesophageal reflux disease, obesity, glaucoma. PLAN: Continue soft bland diet. She continues on eye drops from home as labeled. She is ordered to have Protonix 40 mg IV daily. I have added Norvasc 5 mg p.o. daily. She has nitroglycerin to chest wall q. 4 hours for accelerated hypertension of a BP systolic greater than 160 or diastolic greater than 100. She will continue on meropenem 500 mg IV q. 12 for 7 days as per infectious disease, metoprolol tartrate 100 mg p.o. b.i.d., regular low dose insulin coverage a.c. meals and at bedtime. She is taking her Edarbi 40 mg tablet p.o. daily from home. She continues on clonidine 0.2 mg p.o. t.i.d. and baby aspirin 81 mg p.o. daily. She will have a repeat potassium level in the morning. She has been advised to have a followup with her family day care worker, Dr. Barragan for an endoscopy after discharge as per Dr. Seaman from GI. She is receiving physical therapy for reconditioning and gait training and ultimate plan is for discharge to home when medically stable. All of this has been reviewed in detail with the patient and her nurse, at her bedside. Meaghan Rinaldi MD cc: [id number] TT: 01/31/2017 11:46:10 Confirmation # [id number] Dictation # [id number] jn MTDD
--- NOTE | 2017-01-31 16:26 | PN ---
DATE: 01/31/2017 Seen and examined at the bedside earlier today. The patient denies nausea, vomiting, or abdominal pa in. She is tolerating her solid intake. She did report having a soft stool yesterday. No bowel mov ement today or overt GI bleed. VITAL SIGNS: Temperature is 98.1, blood pressure 149/88, pulse 65, respirations 20. LABORATORY DATA: Today noted POC glucose at 110. PHYSICAL EXAMINATION: HEENT: Sclerae are anicteric. NECK: Supple. CARDIAC: S1, S2. LUNGS: Clear. ABDOMEN: With bowel sounds, soft, nontender. ASSESSMENT: This is a 67-year-old female with nausea, vomiting, and abdominal pain with history of p eptic ulcer disease and gastroparesis, came with acute symptoms after eating chicken and wings at [facility], likely gastroenteritis, but she was also found to have elevated amylase and lipase which are now normalized. The patient then started having loose bowel movements. She was on IV antibiotics of Flagyl and Rocephin. The patient with positive urinary tract infection, Klebsiella pneumoniae, is o n multiple antibiotics. No longer reporting diarrhea-like stools, but request for stool for Clostrid ium difficile is pending collection if patient has another episode of loose stools. The patient's po tassium is also improved. Thank you for this consult and for allowing us to participate in your patient's care. We will make linwood vanegas recommendations based upon patient's clinical course. The patient was seen and case discussed with Dr. Seaman. Mckenzie AGLEAS cc: [id number] TT: 01/31/2017 16:26:07 Confirmation # [id number] Dictation # [id number] tn
--- NOTE | 2017-01-31 17:01 | CP.PCM.CON ---
History of Present Illness - History of Present Illness History of Present Illness: 67 year old female with PMH of HTN, DM, was initially admitted in [facility] because of vomiting and abdominal pain, and she was found to have acute pancreatitis and is being treated for this. At the time of admission , she also had increased urinary frequency and urine cx were done, which are now showing ESBL Klebsiella. Infectious diseases consult is requested to further evaluate and manage. Currently the patient states she still has some urinary frequency, although no burning sensation on urination, no suprapubic pain, no flank pain, no nausea or vomiting now, no abdominal pain currently, no fever or chills, no sore throat, no cough or colds, no headache or dizziness. Review of Systems - Review of Systems All systems: reviewed and no additional remarkable complaints except (as per HPI ) Past Patient History - Infectious Disease Hx of Infectious Diseases: None - Past Medical History & Family History Past Medical History?: Yes Past Family History: Reviewed and not pertinent - Past Social History Smoking Status: Former Smoker Alcohol: None Drugs: Denies Home Situation {Lives}: With Family - CARDIAC Hx Cardiac Disorders: Yes Hx Hypertension: Yes - PULMONARY Hx Respiratory Disorders: Yes (H/O SMOKING CIGARETTES QUIT) - NEUROLOGICAL Hx Neurological Disorder: No - HEENT Hx HEENT Problems: No - RENAL Hx Chronic Kidney Disease: No - ENDOCRINE/METABOLIC Hx Endocrine Disorders: Yes Hx Diabetes Mellitus Type 2: Yes - HEMATOLOGICAL/ONCOLOGICAL Hx Blood Disorders: No - INTEGUMENTARY Hx Dermatological Problems: No - MUSCULOSKELETAL/RHEUMATOLOGICAL Hx Musculoskeletal Disorders: No Hx Falls: No - GASTROINTESTINAL Hx Gastrointestinal Disorders: Yes Hx Pancreatitis: Yes (01-28-17) - GENITOURINARY/GYNECOLOGICAL Hx Genitourinary Disorders: Yes Other/Comment: left breast CA 1995, had radiation-TUMOR REMOVED - PSYCHIATRIC Hx Psychophysiologic Disorder: No Hx Substance Use: No - SURGICAL HISTORY Hx Surgeries: Yes Other/Comment: tumor removed from the left breast - ANESTHESIA Hx Anesthesia: Yes Hx Anesthesia Reactions: No Hx Malignant Hyperthermia: No Meds Allergies/Adverse Reactions: Allergies Allergy/AdvReac Type Severity Reaction Status Date / Time No Known Allergies Allergy Verified 01/28/17 16:53 - Medications Medications: Current Medications Acetaminophen (Tylenol 325mg Tab) 650 mg PO Q6H PRN PRN Reason: Temperature Last Admin: 01/29/17 10:54 Dose: 650 mg Aspirin (Aspirin Chewable) 81 mg PO DAILY [facility] Last Admin: 01/30/17 10:22 Dose: 81 mg Clonidine HCl (Catapres) 0.2 mg PO TID [facility] Last Admin: 01/30/17 10:22 Dose: 0.2 mg Home Med (Home Med) 1 unit PO QOTHERDAY [facility] Last Admin: 01/30/17 10:28 Dose: 1 unit Metronidazole (Flagyl) 100 mls @ 100 mls/hr IVPB Q8 [facility] PRN Reason: Protocol Last Admin: 01/30/17 05:59 Dose: 100 mls/hr Meropenem 500 mg/ Sodium (Chloride) 100 mls @ 100 mls/hr IVPB Q12 [facility] PRN Reason: Protocol Stop: 02/06/17 15:01 Insulin Human Regular (Humulin R Low) 0 units SC ACHS [facility] PRN Reason: Protocol Last Admin: 01/30/17 09:29 Dose: Not Given Latanoprost (Xalatan Opht) 0 ml OU HS [facility] Last Admin: 01/29/17 21:33 Dose: 2.5 ml Metoprolol Tartrate (Lopressor) 100 mg PO BRKDIN [facility] Last Admin: 01/30/17 08:53 Dose: 100 mg Nitroglycerin (Nitro-Bid 2% Oint) 1 ea TOP Q4H PRN PRN Reason: accelerated hypertension Ondansetron HCl (Zofran Inj) 4 mg IVP Q8H PRN PRN Reason: Nausea/Vomiting Pantoprazole Sodium (Protonix Inj) 40 mg IVP DAILY [facility] Last Admin: 01/30/17 10:24 Dose: 40 mg Potassium Chloride (K-Dur 20 Meq Er Tab) 40 meq PO TID [facility] Last Admin: 01/30/17 10:29 Dose: 20 meq Physical Exam - Constitutional Appears: Non-toxic, No Acute Distress - Head Exam Head Exam: NORMAL INSPECTION - ENT Exam ENT Exam: Mucous Membranes Moist - Neck Exam Neck exam: Negative for: Lymphadenopathy, Meningismus - Respiratory Exam Respiratory Exam: Decreased Breath Sounds - Cardiovascular Exam Cardiovascular Exam: +S1, +S2 - GI/Abdominal Exam GI & Abdominal Exam: Soft. absent: Tenderness - Back Exam Back exam: absent: CVA tenderness (L), CVA tenderness (R) Results - Vital Signs Recent Vital Signs: Last Vital Signs Temp 98.2 F 01/30/17 11:58 Pulse 51 L 01/30/17 11:58 Resp 20 01/30/17 11:58 BP 124/77 01/30/17 11:58 Pulse Ox 98 01/30/17 05:43 - Labs Result Diagrams: 01/28/17 11:15 01/31/17 06:00 Labs: Laboratory Results - last 24 hr 01/29/17 01/29/17 01/29/17 07:27 12:18 16:01 Sodium Potassium Chloride Carbon Dioxide Anion Gap BUN Creatinine Est GFR ( Amer) Est GFR (Non-Af Amer) POC Glucose (mg/dL) 142 H 163 H 134 H Random Glucose Calcium Magnesium Total Bilirubin AST ALT Alkaline Phosphatase Total Protein Albumin Globulin Albumin/Globulin Ratio 01/29/17 01/30/17 01/30/17 21:38 06:30 07:20 Sodium 139 Potassium 3.2 L Chloride 101 Carbon Dioxide 27 Anion Gap 14 BUN 16 Creatinine 1.0 Est GFR ( Amer) > 60 Est GFR (Non-Af Amer) 55 POC Glucose (mg/dL) 119 H 120 H Random Glucose 118 H Calcium 9.1 Magnesium 1.8 Total Bilirubin 0.9 AST 35 ALT 19 Alkaline Phosphatase 52 Total Protein 7.8 Albumin 4.1 Globulin 3.7 Albumin/Globulin Ratio 1.1 01/30/17 11:07 Sodium Potassium Chloride Carbon Dioxide Anion Gap BUN Creatinine Est GFR ( Amer) Est GFR (Non-Af Amer) POC Glucose (mg/dL) 120 H Random Glucose Calcium Magnesium Total Bilirubin AST ALT Alkaline Phosphatase Total Protein Albumin Globulin Albumin/Globulin Ratio Assessment & Plan - Assessment and Plan (Free Text) Plan: Assessment Probable lower urinary tract infection with ESBL-producing multidrug-resistant Klebsiella Acute pancreatitis, clinically improving HTN DM history of left breast cancer S/P radiation Plan Started patient on Merrem; since it is a lower UTI, will target 3-5 days Will follow clinically
[2017-01-31] MEDS: Latanoprost 2.5 ml Opht Soln OU SCH (21:45)
--- NOTE | 2017-02-01 07:57 | PN ---
DATE: 01/31/2017 ADDENDUM: This is an addendum to the GI consultation to the progress report dictated by Mckenzie Fraser NP. This patient was seen and evaluated earlier. Admitted with nausea, vomiting and abdominal discomfort . The patient was found to have mildly elevated amylase and lipase level, which improved. Ultrasoun d scan was negative. The patient was found to also have urinary tract infection. On antibiot ics as per ID. Today, complains of abdominal pain. The patient is on empirical PPI. Recommend a lo w fat diabetic diet, soft, chew well. May benefit from elective EGD evaluation. Thank you very much for allowing us to participate in the care. Eulogio Seaman MD cc: [id number] TT: 02/01/2017 02:04:58 Confirmation # [id number] Dictation # [id number] mn
[2017-02-01] MEDS: Insulin Reg-LOW-Coverage SC SCH ×3 (08:15→16:58)
--- NOTE | 2017-02-01 08:54 | RAD ---
HISTORY: repeat COMPARISON: 01/28/2017 at 1358 hour TECHNIQUE: Chest PA and lateral FINDINGS: LUNGS: No active pulmonary disease. PLEURA: No significant pleural effusion identified. No pneumothorax apparent. CARDIOVASCULAR: Mild cardiomegaly-left ventricular enlargement configuration suspect OSSEOUS STRUCTURES: No significant abnormalities. VISUALIZED UPPER ABDOMEN: Normal. OTHER FINDINGS: None. IMPRESSION: No current active disease.
[2017-02-01] MEDS: Meropenem 500 MG in Sodium Chloride 0.9% 100 ML IVPB SCH (09:54)
--- NOTE | 2017-02-01 11:30 | PN ---
DATE: 02/01/2017 Seen and examined at the bedside earlier today. The patient has not had any episodes of diarrhea. In fact, she had a large bowel movement this morning that was semi-pasty; did not note any blood. The patient denies any symptoms of nausea; this has resolved. No vomiting. Tolerating oral intake. No reports of shortness of breath, chest pain or any overt GI bleed. VITAL SIGNS: Temperature is 97.8, blood pressure is 165/92, pulse rate 52, respirations 18, 100% on room air. BLOOD WORK: No new labs are noted for today. The patient had a chest x-ray this morning which is ne gative for pulmonary disease, no pleural effusion or pneumothorax; did show mild cardiomegaly and lef t ventricular enlargement. PHYSICAL EXAMINATION: HEENT: Sclerae are anicteric. NECK: Supple. CARDIAC: S1, S2. LUNGS: Sounds are clear. ABDOMEN: With bowel sounds, soft, nontender. No rebound or guarding. EXTREMITIES: Did not notice any edema. NEUROLOGIC: Awake, alert, and oriented. ASSESSMENT: This is a 67-year-old female who came with abdominal pain, nausea and vomiting. It look s like she had symptoms of gastroenteritis which have resolved, and also came with elevated amylase, lipase, possible pancreatitis which has also improved. She is now being treated for urinary infectio n, positive Klebsiella pneumoniae. Her other comorbidities include hypertension, diabetes type 2, sh e has a history of gastroesophageal reflux disease, peptic ulcer disease. PLAN: The patient is continued on Protonix. She is on IV antibiotics of meropenem. Since the patie nt is tolerating solid intake, we will change the Protonix to p.o. Discussed with the patient regard ing elective outpatient endoscopic evaluation. She usually goes to Dr. Barragan she reported. She had a colonoscopy with him back in 11/2016. Her symptoms of diarrhea are now improved. The patient was seen and case discussed with Dr. Seaman. Mckenzie Fraser GUDELIA cc: [id number] TT: 02/01/2017 11:30:44 Confirmation # [id number] Dictation # [id number] mn
--- NOTE | 2017-02-01 12:06 | CP.PCM.PN ---
Subjective - Date & Time of Evaluation Date of Evaluation: 02/01/17 Time of Evaluation: 08:50 - Subjective Subjective: Comfortable in bed, afebrile, not in distress, no fevers, no dysuria. Objective - Vital Signs/Intake and Output Vital Signs (last 24 hours): Temp Pulse Resp BP Pulse Ox 97.8 F 84 18 144/87 100 02/01/17 06:00 02/01/17 06:00 02/01/17 06:00 02/01/17 06:00 02/01/17 06:00 Intake and Output: 02/01/17 02/01/17 06:59 18:59 Intake Total 640 Balance 640 - Medications Medications: Current Medications Acetaminophen (Tylenol 325mg Tab) 650 mg PO Q6H PRN PRN Reason: Temperature Last Admin: 01/31/17 22:05 Dose: 650 mg Amlodipine Besylate (Norvasc) 10 mg PO DAILY [facility] Aspirin (Aspirin Chewable) 81 mg PO DAILY [facility] Last Admin: 01/31/17 09:26 Dose: 81 mg Clonidine HCl (Catapres) 0.2 mg PO TID [facility] Last Admin: 01/31/17 17:20 Dose: 0.2 mg Home Med (Home Med) 1 unit PO DAILY [facility] Meropenem 500 mg/ Sodium (Chloride) 100 mls @ 100 mls/hr IVPB Q12 SHALINI PRN Reason: Protocol Stop: 02/06/17 15:01 Last Admin: 01/31/17 21:46 Dose: 100 mls/hr Insulin Human Regular (Humulin R Low) 0 units SC ACHS SHALINI PRN Reason: Protocol Last Admin: 02/01/17 08:15 Dose: Not Given Latanoprost (Xalatan Opht) 0 ml OU HS [facility] Last Admin: 01/31/17 21:45 Dose: 2.5 ml Metoprolol Tartrate (Lopressor) 100 mg PO BRKDIN [facility] Last Admin: 02/01/17 08:15 Dose: Not Given Nitroglycerin (Nitro-Bid 2% Oint) 1 ea TOP Q4H PRN PRN Reason: accelerated hypertension Last Admin: 01/31/17 17:21 Dose: 1 ea Ondansetron HCl (Zofran Inj) 4 mg IVP Q8H PRN PRN Reason: Nausea/Vomiting Pantoprazole Sodium (Protonix Inj) 40 mg IVP DAILY [facility] Last Admin: 01/31/17 09:27 Dose: 40 mg - Labs Labs: 02/01/17 07:45 PT 10.5 Seconds (9.9-11.8) 01/28/17 11:15 INR 0.97 (0.93-1.08) 01/28/17 11:15 APTT 27.4 Seconds (23.7-30.8) 01/28/17 11:15 - Constitutional Appears: Non-toxic, No Acute Distress - Head Exam Head Exam: NORMAL INSPECTION - Respiratory Exam Respiratory Exam: Decreased Breath Sounds - Cardiovascular Exam Cardiovascular Exam: +S1, +S2 - GI/Abdominal Exam GI & Abdominal Exam: Soft. absent: Tenderness Assessment and Plan - Assessment and Plan (Free Text) Plan: Assessment Probable lower urinary tract infection with ESBL-producing multidrug-resistant Klebsiella, clinically improved Acute pancreatitis, clinically improving HTN DM history of left breast cancer S/P radiation Plan on Merrem day 3; since it is a lower UTI, target is 3-5 days; she has improved and she can finish today's doses and d/c antibiotics
--- NOTE | 2017-02-01 12:13 | DS ---
FINAL DIAGNOSES: Pancreatitis, resolved; acute gastroenteritis, resolved; chronic hypertension, hypokalemia, resolved; type 2 diabetes mellitus, hyperlipidemia, obesity, Klebsiella pneumoniae extended [id number] urinary tract infection. DISPOSITION: Home. CONSULTANTS: Dr. Sneed, infectious disease. Dr. Seaman, GI. FOLLOWUP: The patient for followup with Dr. Barragan for upper endoscopy as an outpatient, that is her animal doctor, and she was advised to follow up with her PMD, Dr. Paz Becker within 48 hours. DISCHARGE DIET: A 2 gram sodium diabetic heart healthy. DISCHARGE MEDICATIONS: Clonidine 0.2 mg p.o. t.i.d., Ecotrin 81 mg p.o. daily, Crestor 20 mg p.o. daily, Actos 15 mg p.o. daily, metoprolol succinate 1 tablet p.o. daily, Edarbi 40 mg p.o. daily alternating with Edarbi 40/ hydrochlorothiazide 25 mg p.o. daily, potassium K-Dur 20 mEq p.o. b.i.d. and eyedrops from home as labeled. SUMMARY: This 67-year-old female was admitted to [facility] with nausea, vomiting, pancreatitis, gastroenteritis, and electrolyte imbalance. She was seen in consultation by Dr. Seaman from GI who concurred with supportive therapy including IV fluids, IV antibiotics, IV antacids. Diagnostic workup was unremarkable. He recommended that the patient have an upper endoscopy with her animal doctor after discharge for completeness sake. Of note, the patient on microbiology studies had Klebsiella pneumoniae ESBL in her urine for which she was prescribed a 3-day course of meropenem 500 mg IV q.[address] Sneed from infectious disease. At the time of this dictation , she will be completing a 3-day course and has been cleared for discharge by both GI and infectious disease. The patient is aware that she needs to follow up with her PMD in 48 hours and have an upper endoscopy with Dr. Barragan as an outpatient. Hopefully, she will be compliant with the above. Greater than fifty minutes was spent in the care, coordination of care and discussion of this patient's discharge care with herself, nursing, case management and nurse practitioners today. Meaghan Rinaldi MD cc: [id number] TT: 02/01/2017 12:12:15 sn MTDD
[2017-02-01 17:12] VITALS: BP 165/94; PULSE 57
[2017-02-01] MEDS ORDERED: Meropenem 500 MG in Sodium Chloride 0.9% 100 ML IVPB ONE (18:00)
[2017-02-01 18:01] VITALS: RESP 18; TEMP 98.2
--- NOTE | 2017-02-01 20:42 | PN ---
DATE: 02/01/2017 This patient was seen and evaluated earlier. No GI complaints now, tolerating the diet, no further e pisodes of abdominal pain. Admitted with the episode of nausea, vomiting, has mildly elevated amylas e and lipase level, which has improved. Ultrasound scan was negative. Possible evaluation of the lipase could be due to gastroenteritis. The patient is now being treated for Klebsiella pneumonia, ESBL. The patient was followed by Dr. Myra french as an outpatient. The patient was followed by Dr. Barragan. The patient would benefit from outpat ient GI evaluation. Thank you very much for allowing us to participate in the care of the patient. Eulogio Seaman MD cc: [id number] TT: 02/01/2017 20:42:04 Confirmation # [id number] Dictation # [id number] nazia
[2017-02-02] MEDS ORDERED: Pantoprazole 40 mg EC Tab PO SCH (07:30)
== END 2017-02-01 20:01 | disposition home or self-care (01) | DRG 438 ==
LOC: ED 10:22 → ERH 12:42 → 2RSO 16:22
PROVIDERS: ADMIT Internal Medicine; ATTEND Internal Medicine
DX: K85.90 Acute pancreatitis without necrosis or infection, unspecified (principal); J15.0 Pneumonia due to Klebsiella pneumoniae; K31.84 Gastroparesis; E11.43 Type 2 diabetes mellitus with diabetic autonomic (poly)neuropathy; N39.0 Urinary tract infection, site not specified; I10 Essential (primary) hypertension; B96.1 Klebsiella pneumoniae [K. pneumoniae] as the cause of diseases classified elsewhere; E66.9 Obesity, unspecified; E78.5 Hyperlipidemia, unspecified; E86.0 Dehydration; E87.6 Hypokalemia; H40.9 Unspecified glaucoma; K21.9 Gastro-esophageal reflux disease without esophagitis; K27.9 Peptic ulcer, site unspecified, unspecified as acute or chronic, without hemorrhage or perforation; K52.9 Noninfective gastroenteritis and colitis, unspecified; M19.90 Unspecified osteoarthritis, unspecified site; Z16.24 Resistance to multiple antibiotics; Z79.82 Long term (current) use of aspirin; Z79.899 Other long term (current) drug therapy; Z80.0 Family history of malignant neoplasm of digestive organs; Z82.3 Family history of stroke; Z85.3 Personal history of malignant neoplasm of breast; Z86.010 Personal history of colon polyps; Z87.11 Personal history of peptic ulcer disease; Z87.891 Personal history of nicotine dependence; Z92.3 Personal history of irradiation; K29.80 Duodenitis without bleeding

== ENCOUNTER 2018-09-11 11:24 | Day surgery (SDC) | payer MEDICARE ==
[2018-09-11 12:13] LABS: BLOOD UREA NITROGEN 12 mg/dL (7-21); CALCIUM 9.3 mg/dL (8.4-10.5); GFR NON-AFRICAN AMERICAN > 60
[2018-09-11] MEDS ORDERED: cefTRIAXone (Rocephin) 1 gm Inj ONE (14:09)
[2018-09-11] MEDS ORDERED: Iohexol 240 (50 ml) ONE (14:09)
[2018-09-11] MEDS ORDERED: Propofol 10 mg/ml Inj (20 ML) ONE (14:14)
[2018-09-11] MEDS ORDERED: Midazolam 2 MG/2 ML VIAL ONE (14:14)
[2018-09-11] MEDS ORDERED: Lactated Ringer's 1,000 ML IV SCH (14:45)
[2018-09-11] MEDS ORDERED: Oxycodone/Acetaminophen 5/325 mg Tab PO PRN (14:56)
[2018-09-11] MEDS ORDERED: Gentamicin IV 60mg/50ml NS(PREMIX) IVPB ONE (15:15)
[2018-09-11 15:46] VITALS: RESP 18; TEMP 97.5
[2018-09-11 16:09] VITALS: BP 175/79; PULSE 55; O2SAT 100
[2018-09-11 16:25] VITALS: BMI 30.5
--- NOTE | 2018-10-15 11:29 | HP ---
DATE OF EXAM: <> REASON FOR ADMISSION: Workup of voiding . HISTORY OF PRESENT ILLNESS: Very pleasant lady who is 68 also has voiding dysfunction, decreased, irritative and obstructive complaints. Was suspicious for meatal stenosis. She is now here for a cystoscopy and meatal dilation and further plans will follow. PAST MEDICAL AND SURGICAL HISTORY: As listed on the chart. No history of OR or CVA. SOCIAL HISTORY: Essentially otherwise unremarkable. REVIEW OF SYSTEMS: As listed above, otherwise noncontributory. MEDICATIONS: See the chart. ALLERGIES: SEE THE CHART. PHYSICAL EXAMINATION GENERAL: Well-nourished female, in no apparent distress. VITAL SIGNS: Within normal limits and in the chart. LUNGS: Clear. HEART: S1, S2. ABDOMEN: Soft, nontender. No flank mass appreciated. PELVIC: Refer to system, but I will mention now. There is a mild , no other pelvic or rectal masses are detected. LABORATORY DATA: See chart. DIAGNOSES: Standing voiding dysfunction, decreased screening, incomplete bladder emptying, recurrent urinary tract infections and meatal stricture. The plan is as follows, we will now plan for cystoscopy, meatal dilation and clinically, this plan was discussed with the patient at length, we are going to plan to proceed. Uche Murray MD
--- NOTE | 2018-10-15 15:55 | OP ---
PROCEDURE DATE: 09/11/2018 PREOPERATIVE DIAGNOSES: Hematuria, voiding dysfunction and a slow urinary stream, incomplete bladder emptying. Meatal structure, recurrent infection. POSTOPERATIVE DIAGNOSES: Hematuria, voiding dysfunction and a slow urinary stream, incomplete bladder emptying. Meatal structure, recurrent infection, mild cystocele. PROCEDURE: Exam under anesthesia, cystoscopy, meatal dilatation. SURGEON: Uche Murray MD. COMPLICATIONS: There were no complications. BLOOD LOSS: Less than 10 mL. FINDINGS: 1. The meatus is very tight. We could not introduce a cystoscope by dilating it . 2. At the termination the patient is open. 3. Mild cystocele. 3. Bladder mucosa is all within normal limits. INDICATION FOR THE PROCEDURE: See history and physical for further detail. A very pleasant lady. She is here for the above procedure. She came in with voiding complaint, irritative and obstructive in nature. She is not able to empty well. She goes to the bathroom frequently. She is having recurrent infections and she is now here for the above procedure. DESCRIPTION OF PROCEDURE: After obtaining informed consent, the patient was placed on the table. Routine monitor was placed. Timeout was called to confirm patient positioning. Antibiotic prophylaxis used. We attempted to introduce the cystoscope via urethra. dilators to dilate the meatus. Once we did, we introduced 23-Bulgarian scope via the urethra, we inspected the bladder carefully with no other abnormality. cystoscope removed. The patient tolerated the procedure without complication. I do want to mention that under anesthesia there is a mild cystocele. There was no abnormalities appreciated. Uche Murray MD
== END 2018-09-11 16:20 | disposition home or self-care (01) ==
LOC: SDS 11:24
PROVIDERS: ATTEND Urology
DX: N35.92 Unspecified urethral stricture, female (principal); N81.10 Cystocele, unspecified; R31.0 Gross hematuria; R39.198 Other difficulties with micturition; R33.9 Retention of urine, unspecified
CPT/HCPCS: 36415; 52281; 80048; J0696; J1580 ×2; J1885; J2250; J2704; J3010; J7120 ×2; Q9966

== ENCOUNTER 2019-01-29 17:42 | Outpatient (CLI) | payer MEDICARE | END 2019-01-29 17:43 | disposition home or self-care (01) | LOC: RAD 17:42 ==